=== PATIENT | male | born 1965 | race Caucasian/White ===

== ENCOUNTER 2019-01-09 05:37 | Inpatient (IN) | payer OTHER ==
[2019-01-09] MEDS ORDERED: ACETAMINOPHEN 325 MG TAB PO ONE (06:03)
[2019-01-09] MEDS ORDERED: ceFAZolin 2 GM/DEXTROSE 100 ML IV ONE (06:03)
[2019-01-09] MEDS ORDERED: FAMOTIDINE 20 MG TAB PO ONE (06:03)
[2019-01-09] MEDS ORDERED: DEXAMETHASONE 4 MG/ML VIAL IVP ONE (06:03)
[2019-01-09] MEDS ORDERED: LR 1,000 ML IV ONE (06:04)
[2019-01-09] MEDS ORDERED: ceFAZolin 1 GM/5 ML SYR ONE (06:08)
[2019-01-09] MEDS ORDERED: TRANEXAMIC ACID 3,000 MG/50 ML BAG IRR ONE (06:08)
--- NOTE | 2019-01-09 06:33 | PDHPUP ---
History & Physical Update H&P update statement: This history and physical update is based on an assessment of the patient which was completed after admission or registration (within 24 hours), but prior to the surgery/procedure. H&P update: H&P reviewed & patient examined, no change in patient's condition since H&P completed
--- NOTE | 2019-01-09 06:59 | PDANEPAE ---
ANE History of Present Illness right knee pain ANE Past Medical History - Cardiovascular History Hx Hypertension: No Hx Arrhythmias: No Hx Chest Pain: No Hx Coronary Artery / Peripheral Vascular Disease: No Hx CHF / Valvular Disease: No Hx Palpitations: No - Pulmonary History Hx COPD: No Hx Asthma/Reactive Airway Disease: No Hx Recent Upper Respiratory Infection: No Hx Oxygen in Use at Home: No Hx Sleep Apnea: No Sleep Apnea Screening Result - Last Documented: Negative - Neurologic History Hx Cerebrovascular Accident: No Hx Seizures: No Hx Dementia: No - Endocrine History Hx Diabetes: No Hypothyroid: No Hyperthyroid: No Obesity: mild - Renal History Hx Renal Disorders: No - Liver History Hx Hepatic Disorders: No - Neurological & Psychiatric Hx Hx Neurological and Psychiatric Disorders: No - Cancer History Hx Cancer: No - Congenital Disorder History Hx Congenital Disorders: No - GI History Hx Gastrointestinal Disorders: No - Other Health History Other Health History: ED - Chronic Pain History Chronic Pain: Yes (CHRONIC BACK PAIN) - Surgical History Prior Surgeries: ankle surgery. multiple knee surgeries ANE Review of Systems Review of systems is: negative Review of Systems: - Exercise capacity Exercise capacity: >=4 METS METS (RN): 5 METS ANE Patient History - Allergies Allergies/Adverse Reactions: No Known Allergies Allergy (Verified 12/21/18 13:55) - Home Medications Home medications: home medication list seen and reviewed Home Medications: Cyclobenzaprine [Flexeril 10 MG (*)] 10 mg PO TID PRN 12/21/18 [Last Taken 01/07] Ibuprofen [Motrin (*)] 200 mg PO DAILY PRN 12/21/18 [Last Taken 12/20/18] Multivitamins [Multivitamin (*)] 1 each PO DAILY 12/21/18 [Last Taken 01/07/19] BUPRENORPHINE HCL 01/09/19 [Last Taken 01/06/19] - NPO status NPO Status: no food or drink >8 hours NPO Since - Liquids (Date): 01/09/19 NPO Since - Liquids (Time): 03:00 NPO Since - Solids (Date): 01/08/19 NPO Since - Solids (Time): 22:30 - Anes Hx Anes Hx: no prior problems - Smoking Hx Smoking Status: Former smoker - Family Anes Hx Family Hx Anesthesia Complications: none ANE Labs/Vital Signs - Vital Signs Vital Signs: reviewed preoperatively; see RN documention for details Blood Pressure: 136/103 Heart Rate: 79 Respiratory Rate: 18 O2 Sat (%): 95 Height: 181.61 cm Weight: 106.594 kg ANE Physical Exam - Airway Neck exam: FROM Mallampati Score: Class 2 Mouth exam: normal dental/mouth exam - Pulmonary Pulmonary: no respiratory distress, clear to auscultation - Cardiovascular Cardiovascular: regular rate and rhythym - ASA Status ASA Status: II ANE Anesthesia Plan Anesthesia Plan: spinal Regional Anesthesia: single shot NB, adductor canal FNB
[2019-01-09] MEDS ORDERED: PROPOFOL/EMULSION 500 MG/50 ML BOTTLE IV ONE ×6 (07:07→10:30)
[2019-01-09] MEDS ORDERED: MIDAZOLAM 2 MG/2 ML VIAL ONE (07:07)
[2019-01-09] MEDS ORDERED: ROPIVACAINE 0.2% 80 MG, EPINEPHrine 0.2 MG, KETOROLAC TROMETHAMINE 30 MG in SYRINGE 0 ML IU ONE (07:15)
[2019-01-09] MEDS ORDERED: TRANEXAMIC ACID 3,000 MG in NS (SYRINGE) 50 ML IRR ONE (07:15)
[2019-01-09] MEDS ORDERED: ROPIVACAINE HCL 150 MG/30 ML INJ ONE (07:56)
[2019-01-09] MEDS ORDERED: ONDANSETRON 4 MG/2 ML VIAL ONE (07:56)
[2019-01-09] MEDS ORDERED: DEXAMETHASONE 4 MG/ML VIAL ONE ×2 (07:56)
[2019-01-09] MEDS ORDERED: NALOXONE HCL 0.4 MG/ML INJ IVP PRN (08:16)
[2019-01-09] MEDS ORDERED: LABETALOL HCL 5 MG/ML 20 ML MDV IVP PRN (08:16)
[2019-01-09] MEDS ORDERED: ALBUTEROL 3 ML DEYVIAL IH PRN (08:16)
[2019-01-09] MEDS ORDERED: DEXAMETHASONE 4 MG/ML VIAL IVP PRN (08:16)
[2019-01-09] MEDS ORDERED: PHENYLEPHRINE HCL 100 MCG/ML SYR IVP PRN (08:16)
[2019-01-09] MEDS ORDERED: ACETAMINOPHEN 500 MG TAB PO PRN (08:16)
[2019-01-09] MEDS ORDERED: LR 500 ML IV PRN (08:16)
[2019-01-09] MEDS ORDERED: DIAZEPAM 5 MG/ML 1 ML SYR IVP PRN (08:16)
[2019-01-09] MEDS ORDERED: HYDROmorphONE/DILAUDID 2 MG/ML INJ IVP PRN (08:16)
[2019-01-09] MEDS ORDERED: PROMETHAZINE HCL 25 MG/ML INJ IVP PRN ×2 (08:16→10:42)
[2019-01-09] MEDS ORDERED: METOCLOPRAMIDE 10 MG/2 ML VIAL IVP PRN ×2 (08:16→10:42)
[2019-01-09] MEDS ORDERED: oxyCODONE IR 5 MG TAB PO PRN (08:16)
[2019-01-09] MEDS ORDERED: MEPERIDINE 25 MG/0.5 ML AMP IVP PRN (08:16)
[2019-01-09] MEDS ORDERED: ONDANSETRON 4 MG/2 ML VIAL IVP PRN ×2 (08:16→10:42)
[2019-01-09] MEDS ORDERED: PROPOFOL 200 MG/20 ML VIAL ONE ×3 (08:33→10:03)
[2019-01-09] MEDS ORDERED: fentaNYL 100 MCG/2 ML INJ ONE ×2 (10:14→11:46)
[2019-01-09] MEDS ORDERED: PROMETHAZINE HCL 25 MG SUPPR PR PRN (10:42)
[2019-01-09] MEDS ORDERED: ONDANSETRON DISINTEGRATING 4 MG TAB PO PRN (10:42)
[2019-01-09] MEDS ORDERED: BISACODYL 10 MG SUPP PR PRN (10:42)
[2019-01-09] MEDS ORDERED: LACTULOSE 20 GM/30 ML UDCUP PO PRN (10:42)
[2019-01-09] MEDS ORDERED: MAGNESIUM HYDROXIDE 30 ML UDCUP PO PRN (10:42)
[2019-01-09] MEDS ORDERED: diphenhydrAMINE 25 MG CAP PO PRN (10:42)
[2019-01-09] MEDS ORDERED: DIPHENOXYLATE/ATROPINE LOMOTIL 1 TAB PO PRN (10:42)
[2019-01-09] MEDS ORDERED: POLYETHYLENE GLYCOL 3350 17 GM PKT PO PRN (10:42)
[2019-01-09] MEDS ORDERED: MIDAZOLAM 2 MG/2 ML VIAL IVP ONE (10:45)
[2019-01-09] MEDS ORDERED: LR 1,000 ML IV SCH (11:00)
[2019-01-09] MEDS: fentaNYL 100 MCG/2 ML INJ IVP PRN ×2 (11:48→12:00)
[2019-01-09] MEDS ORDERED: traMADol 50 MG TAB ONE (12:19)
[2019-01-09] MEDS: traMADol 50 MG TAB PO PRN ×2 (12:20→18:17)
--- NOTE | 2019-01-09 13:04 | GOP ---
[f rep st] OPERATIVE REPORT DATE OF OPERATION: 01/09/2019 SURGEON: Carolina Winslow MD REGIONAL EDUCATION COORDINATOR: Chuck Lugo MD ANESTHESIA: General with spinal and adductor canal block. PREOPERATIVE DIAGNOSIS: Severe osteoarthritis, right knee with retained hardware, right knee. POSTOPERATIVE DIAGNOSIS: Severe osteoarthritis, right knee with retained hardware, right knee. PROCEDURE PERFORMED: Left total knee arthroplasty with extensive soft tissue releases and hardware r emoval, right knee. FINDINGS: Preoperative x-rays of the patient's right knee demonstrated severe post traumatic arthrit is with complete loss of the joint space in all 3 compartments. There was marked osteophyte formatio n around the periphery of all 3 compartments. The patient had retained hardware with 2 screws in the tibia, one a 6.5 cancellous screw with a washer and the second an interference screw buried in the t ibia. The patient also had an interference screw in the lateral femoral condyle. In addition, the p atient had a preoperative flexion contracture of approximately 40 degrees. At the time of surgery, a cemented [employer] II posterior stabilized total knee arthroplasty was performed. A size 7 femoral component was cemented into place and a size 7 tibial base plate was also utilized. A 9 mm thick cross-linked polyethylene insert was placed in the metal backing of the tibia. A 38 mm r ound patellar component was cemented on the patella. Following implantation of the components, the k nee was taken through range of motion. The patient required extensive soft tissue releases, both in the posterior capsule and medial collateral ligament, as well as the pes tendons. Finally after all of this, the patient achieved near full extension on the table. There was a residual several degree flexion contracture that could not be fully corrected. The patient achieved 130 degrees of flexion. The patella tracked well in the trochlea. ESTIMATED BLOOD LOSS: 100 cc. DESCRIPTION OF PROCEDURE: The patient was taken the operating room, placed in supine position on the operating table. Following induction of adequate general and spinal anesthesia, the leg and foot we re prepped and draped in the usual sterile manner. The patient received 2 g of IV Ancef. The leg wa s elevated and exsanguinated and the tourniquet inflated to 275 mmHg. A midline incision was made extending from 3 fingerbreadths above the superior pole of the patella di stally to the tibial tubercle. The patient had marked deformity of the entire joint. There was rossy ed osteophyte formation around the periphery of the joint. The patella could not be everted because of the severe flexion contracture and contracture of all the soft tissues. Extensive soft tissue rel easing was required for the entire procedure. The patella could not be everted to make the patellar cut, so it was held in the lateral position and approximately 78 mm was taken from the posterior aspe ct of the patella. All of the osteophytes were removed from around the periphery of the joint. The metal protector was then placed on the cut surface of the patella and the patella was placed in the l ateral gutter. The patient also had marked osteophyte formation around the anterior aspect of the ti kurt. This was removed with osteotomes. Next, our attention was turned to hardware removal. The 6.5 cancellous screw with a washer was locat ed in the tibia and backed out. Ethibond suture was also removed. The interference screw in the tib ia was located next and this was removed with the Arthrex screwdriver. Our attention was then turned to the femur. The knee was flexed up, and again, soft tissue releases were required to achieve flexion and to retract the patella, but eventually, we achieved adequate fle xion to make the distal femoral cut. Intramedullary referencing was utilized for the distal femoral cut. The cutting block was positioned and pinned, and then, a +2 cut was taken from the distal femur . The femur was then sized and a size 7 femoral component was felt to be the best fit, so the size 7 cutting block was placed on the distal femur. The anterior, posterior, and chamfer cuts were made. The interference screw in the femur was then located, and the notch could not be cleared until the s crew was removed. There was difficulty removing the screw due to the angle of insertion. Osteophyte s were removed from the notch, and eventually, the screwdriver was inserted and the interference scre w was backed out. The notch was then cleared with a reamer, followed by the box osteotome. A trial reduction was performed with a size 7 femoral component, and a good fit was noted. The trial was removed, and then, the tibial cutting jig was positioned. Intramedullary referencing w as utilized again for the tibia. A drill hole was placed in the central tibia, and then, the intrame dullary guide was inserted and positioned. The tibia was cut. Prior to cutting the femur, the lolli pop was utilized to rossy the tibia for the appropriate thickness of the cut. Utilizing this rossy, th e tibia was cut. The lollipop was then inserted and we could not achieve extension, so the lollipop was removed and a +4 cut was then taken from the tibia. The trial reduction was performed with the c omponents, and again, the knee was extremely tight. The patient had approximately 25 degree flexion contracture. The trial components were removed and extensive releasing was performed in the posterio r capsule where the patient had a severe contracture. The medial collateral ligament was released al sherwin the tibia and the pes tendons were also released. In addition, the femur and tibia were recut. The tourniquet time was 2 hours at this point, so the tourniquet was deflated and the patella was zurdo rted, recut, and sized. It was prepared by placing the drill holes in the patella. The tourniquet w as left down for approximately 5 to 8 minutes and then reinflated. The knee was flexed up and the d istal femoral cutting block was placed back on the distal femur and another 2 mm were taken off the d istal femur. Size 7 cutting block was then placed on the femur again and the anterior, posterior, an d chamfer cuts were remade. The trial was placed on the distal femur and a good fit was noted. Our attention was turned back to the tibia. An additional 2 mm was taken off the tibia as well. The tib ia was sized, and then, a trial reduction was performed with the components and a 9 mm thick polyethy yoli. The patient achieved near full extension at this point. This was felt to be the best we could do in terms of correcting the severe flexion contracture preoperatively. The trial components were then removed and the tibia was pinned and the keel jig was passed. The bon y surfaces were thoroughly irrigated and tranexamic acid was placed in the posterior capsule and on t he bony surfaces. Joint cocktail was also injected in the posterior capsule. The cement was mixed. All the surfaces were thoroughly dried, and then, the tibial component was cemented, followed by the femoral component and the patella. The knee was brought into extension and held while the cement joyce rdened with a 9 mm polyethylene trial. Once the cement was hard, the knee was flexed up, and the 9 m m polyethylene was opened and inserted. The wound was thoroughly irrigated out, and then, the retina culum of the knee was closed using #2 FiberWire in a causln-st-hpmhy fashion. The subcutaneous tissu es were closed using 2-0 Vicryl. The skin was closed using liset. Sterile dressings were applied. The patient tolerated the procedure well, and there were no complications. Estimated blood [id number] c c. Final sponge, needle counts were correct. The procedure was complicated and lengthened due to th e patient's severe flexion contracture and the extensive intraoperative soft tissue releases that nee ded to be performed in order to bring the patient into extension at the completion of the procedure. /[id number]/MODL
--- NOTE | 2019-01-09 13:34 | POSTANESTH ---
Post Anesthetic Evaluation Cardiovascular Status: Normal, Stable Respiratory Status: Normal, Stable Level of Consciousness/Mental Status: Can Participate in Eval Pain Control: Adequate, Prn Tx Ordered Nausea/Vomiting Control: Adequate, Prn Tx Ordered Complications Possibly Related to Anesthesia: None Noted
[2019-01-09] MEDS: CYCLOBENZAPRINE 10 MG TAB PO PRN (15:09)
--- NOTE | 2019-01-09 15:10 | PDMN ---
Medical Necessity Medical necessity: Pt meets inpt criteria per MD order and [facility] S-700, Knee Arthroplasty, Total, A-2 days. 53 y/o w/severe R knee osteoarthritis and hx chronic back pain admitted for R TKA w/extensive soft tissue releases and hardware removal, post-op care.
[2019-01-09] MEDS: ceFAZolin 2 GM/DEXTROSE 100 ML IV SCH ×2 (15:42→22:37)
[2019-01-09] MEDS ORDERED: IBUPROFEN 600 MG TAB PO PRN (18:00)
[2019-01-09] MEDS: ACETAMINOPHEN 325 MG TAB PO SCH ×2 (18:18→21:13)
[2019-01-09] MEDS: SENNOSIDES/DOCUSATE SODIUM TAB PO SCH (21:12)
[2019-01-09] MEDS: FAMOTIDINE 20 MG TAB PO SCH (21:12)
[2019-01-10] MEDS: traMADol 50 MG TAB PO PRN ×3 (00:33→12:44)
[2019-01-10] MEDS: ACETAMINOPHEN 325 MG TAB PO SCH ×2 (06:29→09:27)
[2019-01-10] MEDS ORDERED: FERROUS SULFATE 325 MG TAB PO SCH (08:00)
[2019-01-10] MEDS ORDERED: ASPIRIN 81 MG CHEWABLE TAB PO SCH (09:00)
[2019-01-10] MEDS: SENNOSIDES/DOCUSATE SODIUM TAB PO SCH (09:26)
[2019-01-10] MEDS: FAMOTIDINE 20 MG TAB PO SCH (09:26)
[2019-01-10 11:40] VITALS: BP 118/77
--- NOTE | 2019-01-10 14:15 | SOAPPROG ---
SOAP Progress Note Assessment/Plan: Assessment/Plan: 53y/o male s/p right TKA - stable and doing well - pain managed ok with Tylenol and Tramadol, will trial Ibuprofen today. patient with history of prior opioid addiction, will continue to attempt to avoid Oxycodone, Hydrocodone - PT/OT, plan for stairs once foot numbness from block improves - xrays stable - patient doing better than anticipated, suspect will be ready for discharge home this afternoon - return precautions discussed, call with issues or concerns 01/10/19 14:13 Subjective: Having numbness from just below knee, down; whole lower limb/foot. Motor function slowly returning. Having pain, Tylenol and Tramadol helping some. Walked with PT. Eating, drinking, voiding Objective: Vital Signs Temp Pulse Resp BP Pulse Ox 36.9 C 79 16 118/77 99 01/10/19 11:40 01/10/19 11:40 01/10/19 11:40 01/10/19 11:40 01/10/19 11:40 Laboratory Results 01/10/19 00:45 01/09/19 01/10/19 01/11/19 05:59 05:59 05:59 Intake Total 4900 1000 Output Total 2050 1000 Balance 2850 0 NAD, well appearing, no distress EOMi, face symmetric left knee lacking 10 degrees of extension flexion 60 numbness in sock distribution incision CDI, no erythema or active drainage new dressing placed in sterile fashion ICD10 Worksheet Patient Problems: Problems Problem Status Onset Osteoarthritis Acute - ICD10 Problem Qualifiers (1) Osteoarthritis
[2019-01-10] MEDS: CYCLOBENZAPRINE 10 MG TAB PO PRN (14:34)
--- NOTE | 2019-01-10 16:05 | ASMTCMCOM ---
CM Note CM Note Notes: Pt had planned OA of knee, will d/c to friend's house in [place] PT rec home/C. rec outpatient pt and pt agrees, he already has his first outpatient PT scheduled in less than a week on 01/16/19. No CM d/c needs identified. Date Signed: 01/10/2019 04:05 PM Electronically Signed By:KATHERINE Peace
--- NOTE | 2019-01-10 16:06 | ASMTLACE ---
LACE Length of stay for Answers: 2 days current admission Acuity / Level of Answers: Yes Care: Did the patient have an inpatient admission? Comorbidities - select Answers: Opioid dependence all that apply / Chronic pain # of Emergency department Answers: 0 visits in the last 6 months Score: 9 Date Signed: 01/10/2019 04:06 PM Electronically Signed By:KATHERINE Peace
--- NOTE | 2019-01-12 14:59 | GDS ---
[f rep st] DISCHARGE SUMMARY ADMISSION DIAGNOSIS: Severe osteoarthritis. DISCHARGE DIAGNOSIS: Osteoarthritis. HOSPITAL COURSE: The patient is a 53-year-old male who is well known to our service for ongoing righ t knee pain. He had evidence of severe osteoarthritis on exam and imaging studies. After careful de cision-making and discussion, he elected to proceed forth with a right total knee arthroplasty. The procedure was done by Dr. Carolina Winslow on January 09, 2019. The patient tolerated the procedure wel l without complication. When PACU criteria was met, he was transferred to the floor. there, he work ed with Physical Therapy and Occupational Therapy and continued to improve. His pain was well manage d, and he continued to make progress. On January 10, 2019, he was in good and stable condition, ready for discharge home. He was given strict instruction to follow up on January 23, 2019, or sooner with an y issues or changes. All of his questions prior to discharge home. /[id number]/MODL
== END 2019-01-10 16:14 | disposition home or self-care (01) | DRG 470 ==
LOC: F3N 05:37
PROVIDERS: ADMIT Orthopaedic Surgery; ATTEND Orthopaedic Surgery
PROC: 0SRC0J9 Replacement of Right Knee Joint with Synthetic Substitute, Cemented, Open Approach (ICD-10-PCS; principal; 2019-01-09 07:15)
PROC: 0QPG04Z Removal of Internal Fixation Device from Right Tibia, Open Approach (ICD-10-PCS; principal; 2019-01-09 07:15)
DX: M17.11 Unilateral primary osteoarthritis, right knee (principal)
CPT/HCPCS: 97116-GP; 97161-GP; 97165-GO; 97530-GP; C1713; J0171; J0690; J1100; J1885; J2250; J2405; J2704; J2795; J3010